=== PATIENT | female | born 1950 | race Caucasian/White ===

== ENCOUNTER 2021-05-07 07:57 | Day surgery (SDC) | payer MEDICARE, BC, OTHER ==
[2021-05-07] VITALS (13 sets, daily range): BP systolic 120–166; BP diastolic 47–79; PULSE 57–92; TEMP 97.5–98.2
[~2021-05-07] VITALS: Ht 160 cm; Wt 76.6 kg
[~2021-05-07 07:57] MED LIST: ASPIRIN E.C. 8181 MG PO; NEXIUM 40MG40 MG PO
[2021-05-07 08:33] LABS: HEMATOCRIT 44.2 % (37.0-47.0); HEMOGLOBIN 14.8 g/dl (12.5-16.0); MEAN CELL VOLUME 87 fl (80.0-100.0); MEAN CORPUSCULAR HEMOGLOBIN 29 pg (27-31); MEAN CORPUSCULAR HGB CONC 34 g/dl (33.0-37.0); MEAN PLATELET VOLUME 9.3 fl (7.4-10.4); PLATELET COUNT 359 K/mm3 (130-400); RED BLOOD COUNT 5.07 M/mm3 (4.10-5.30); REDCELL DISTRIBUTION WIDTH-CV 12.5 % (11.5-14.5)
[2021-05-07 08:41] LABS: PROTHROMBIN TIME 10.9 SECONDS (9.7-12.8)
[2021-05-07 08:43] LABS: PARTIAL THROMBOPLASTIN TIME 30.8 SECONDS (26.0-37.0)
[2021-05-07 08:47] LABS: CALCIUM 9.8 mg/dL (8.4-10.2); CREATININE, serum 0.79 mg/dL (0.57-1.11); POTASSIUM 3.9 mmol/L (3.5-4.5)
[2021-05-07] MEDS ORDERED: MOBIC 7.5MG7.5 MG PO (08:47)
[2021-05-07] MEDS ORDERED: YUVAFEM10 MCG VG (08:48)
[2021-05-07] MEDS ORDERED: HCTZ 25MG TAB25 MG PO (08:48)
--- NOTE | 2021-05-07 12:09 | NUR ---
SEE MERGE FOR ALL MEDICATION ADMINISTRATION TIMES/DOSAGES AND INTRA/POST SEDATION ASSESSMENTS.
--- NOTE | 2021-05-07 14:00 | NUR ---
Pt arrived to the floor around 1300 post heart cath. Report given at bedside. Pt having severe pain around right breast/under arm pit. Heart cath nurse notified Dr Rowland. VSS. Dr Castillo did arrive on the floor to assess pt, new orders wrote. Attempted to call RT multiple times, Mamta, RT did arrive to do EKG. Pt rating pain 8/10. Pts at bedside. She is tolerating ice chips, but reports that she does feel a little nauseated. Ordered meds given. Radial site with no bleeding noted. Call light within reach
--- NOTE | 2021-05-07 14:22 | NUR ---
Report received pt to be admitted.
--- NOTE | 2021-05-07 18:12 | NUR ---
Pt is doing well. Pt has approximately 9ml removed from band. Pt has eaten and tolerated AHA diet although she was not happy about being on restrictions. Pt reports that her pain is much better
--- NOTE | 2021-05-07 18:56 | NUR ---
radial band removed, bandaid applied. pt reports feeling much better at this time. Report given to steward/stewardess room
[2021-05-08 03:48] VITALS: BP 117/64; PULSE 65; TEMP 97.5
--- NOTE | 2021-05-08 06:40 | NUR ---
ASSESSMENT COMPLETE FOR THIS SHIFT. PT RESTING IN BED. NO BLEEDING NOTED TO THE RADIAL CATH SITE. PT DENIES PAIN, PALPITATIONS, SOB, OR DIZZINESS. PT HAD AN OTHERWISE UNEVENTFUL NIGHT. PT STATED SHE HAD NO OTHER NEEDS AT THIS TIME. CALL LIGHT WITHIN REACH.
--- NOTE | 2021-05-08 07:00 | NUR ---
Pt denies any needs during shift change, will continue to monitor
[2021-05-08 07:01] LABS: BASO % 0.2 % (0.0-2.0); EOS # 0.2 K/mm3 (0.0-0.7); EOS % 1.7 % (0.0-4.0); GRAN # 6.5 K/mm3 (1.4-6.5); GRAN % 72.1 % (42.2-75.2); LYMPH # 1.7 K/mm3 (1.2-3.4); LYMPH % 19.1 % (20.0-51.0); MEAN CELL VOLUME 89 fl (80.0-100.0); MEAN CORPUSCULAR HGB CONC 34 g/dl (33.0-37.0); MEAN PLATELET VOLUME 9.9 fl (7.4-10.4); MONO # 0.6 K/mm3 (0.1-0.6); MONO % 6.7 % (1.7-9.3); PLATELET COUNT 293 K/mm3 (130-400); RED BLOOD COUNT 4.06 M/mm3 (4.10-5.30); REDCELL DISTRIBUTION WIDTH-CV 12.3 % (11.5-14.5)
[2021-05-08 07:11] LABS: MEAN CORPUSCULAR HEMOGLOBIN 30 pg (27-31)
[2021-05-08 07:13] LABS: HEMOGLOBIN 12.1 g/dl (12.5-16.0)
[2021-05-08 07:24] LABS: CALCIUM 8.5 mg/dL (8.4-10.2); CREATININE, serum 0.7 mg/dL (0.57-1.11); POTASSIUM 4.1 mmol/L (3.5-4.5)
[2021-05-08 08:31] VITALS: BP 127/61; PULSE 69; TEMP 98.1
--- NOTE | 2021-05-08 09:40 | NUR ---
Pt doing well, no pain complaints, radial site CDI. Pt is sitting up eating breakfast although she has a lot of complaints. Pt stated that you only live once and that she will not be following a specific diet. Scaleman came in to talk with pt and pt stated she was not interested and any information on a heart healthy diet because she will not follow it. pt reported that Dr Rowland has been by and stated that she will be going home. Informed her that I do not have any orders at this time, but pt reported that she isn't able to leave until closer to 11:00. No other needs at this time, will continue to monitor
--- NOTE | 2021-05-08 10:28 | NUR ---
Initial visit; Patient doing well physically about to be discharged though agrees with Financial Aid's perception that she is depressed. She and Financial Aid spoke of her life and where and how she could get help for her depression. She thanked Financial Aid for sharing and offering God's blessings.
[2021-05-08] MEDS ORDERED: LIPITOR 80MG80 MG PO (10:54)
[2021-05-08] MEDS ORDERED: BRILINTA90 MG PO (10:54)
[2021-05-08] MEDS ORDERED: LOPRESSOR 225 MG/TAB PO (10:56)
--- NOTE | 2021-05-08 11:57 | NUR ---
Reviewed discharge instructions with pt. Discussed cardiac rehab would call to set up outpt rehab appointment. INT removed from left AC. All questions answered, pt escorted out
== END 2021-05-08 11:59 | disposition home or self-care (01) ==
LOC: COL.CAR 07:57 → SURG 13:10 → COL.CAR 05-08 11:59
PROVIDERS: Internal Medicine Cardiovascular Disease
DX: I25.110 Atherosclerotic heart disease of native coronary artery with unstable angina pectoris (principal)
CPT/HCPCS: OP; C9600; J0583; J1644; J2250; J2405; J3010; Q9967